=== PATIENT | female | born 1930 | race Caucasian/White ===

== ENCOUNTER → 2017-01-25 | Day surgery (SDC) | payer MEDICARE, OTHER ==
[~2017-01-25] VITALS: Ht 167.6 cm; Wt 74.2 kg
[~2017-01-25] MED LIST: CATAPRES0.1 MG PO; COLACE100 MG PO; HYDROCODON-ACE1 EAC4 PO; KALEXATE15 GM PO; LEVOTHROID (SY50 MCG PO; MAALOX LIQ UNIT30 ML PO; MYLANTA (MAG-AL30 ML PO; NORCO 5-325 TA1 EACH PO; NORVASC10 MG PO; OXYGEN M-15 INH; PRO STAT PO; TENORMIN25 MG PO; TENORMIN50 MG PO; TYLENOL325 MG PO; ZOLOFT25 MG PO; [UNRECOGNIZED DRUG - OTHER] PO
--- NOTE | ~2017-01-25 | OR ---
PATIENT'S NAME: MANJU ROSADO [facility] AGE: 86 Y [address] ROOM: [place] [id number] [place]: [facility] [place] DATE: 01/25/2017 OR/Procedure Report DISCHARGE DATE: FAMILY PHYSICIAN: Heath Siddiqui MD ATTENDING PHYSICIAN: JAMIE KENYON SURGEON: Jamie Kenyon MD ACUTE COORDINATOR: DATE OF PROCEDURE: 01/25/2017 PREOPERATIVE DIAGNOSIS: End-stage renal disease. POSTOPERATIVE DIAGNOSIS: End-stage renal disease. PROCEDURE: Right arm brachiobasilic fistula. MANAGER EMBALMER FUNERAL DIRECTOR: Coty Griffin. She was required during the case to perform retraction, minimal dissection, and then closure of the operative wound. ANESTHESIA: General. ESTIMATED BLOOD LOSS: 5 mL. OPERATIVE FINDINGS: Good thrill and bruit in the basilic fistula, although vein caliber was small. DESCRIPTION OF PROCEDURE: The patient was brought to the operating room, placed supine on the operating table, placed under general anesthesia, prepped and draped in a sterile manner. Preoperative time-out was performed. The patient received preoperative antibiotics. We made a standard incision 2 cm proximal to the antecubital fossa, dissected down the fascia, incised the fascia in a longitudinal manner. We dissected out the brachial artery in a 360-degree fashion. We dissected the cephalic vein initially, but this vein was not adequate for use. We then dissected out the basilic vein. We then transected it distally after ligation. We then gave 5000 units of heparin. We clamped proximally and distally the artery and made arteriotomy size of 4 mm. We then did a standard 6-0 Prolene anastomosis from the vein to the artery. We removed the clamps, there was excellent flow in the fistula, although the vein caliber remained small. There was a strong radial and ulnar signal at the end of the case. Heparin was reversed with the use of protamine. Thrombin was used locally in the wound. Deep layers were closed with 2-0 and 3-0 Vicryl. Skin was closed with running 4-0 Monocryl. The patient tolerated the procedure well and transferred to recovery room and home later that day. PATIENT'S NAME: MANJU ROSADO [facility] AGE: 86 Y [address] ROOM: [place] [address] LOCATION: [facility] [place]MIT DATE: 01/25/2017 OR/Procedure Report DISCHARGE DATE: FAMILY PHYSICIAN: Heath Siddiqui MD ATTENDING PHYSICIAN: JAMIE KENYON JAMIE KENYON MD FKM/modl /[id number] d: 01/[birth year]/171956 t: 02/04/17 1627, OPERATIVE SUMMARY
[2017-01-25 09:01] LABS: ALBUMIN 2.1 gm/dL (3.5-5.0); CALCIUM 8.1 mg/dL (8.5-10.5); TOTAL BILIRUBIN 0.2 mg/dL (0.0-1.5)
[2017-01-25 09:06] LABS: ANION GAP 15.1 (10.0-19.0)
[2017-01-25 09:07] LABS: CREATININE 4.2 mg/dL (0.5-1.1); POTASSIUM 5.1 mMol/L (3.7-5.1); TOTAL PROTEIN 4.8 g/dL (6.0-8.4)
--- NOTE | 2017-01-25 14:21 | NUR ---
LIA, S[employer] LINING EXAMINER AT [facility] CALLED REPORT. GAVE INSTRUCTIONS REGARDING DRESSING, IV DRESSING, AND DISMISSAL INSTRUCTIONS REGARDING FISTULA. DENIES FURTHER QUESTIONS.
== END ==
LOC: GPOC 01-04 13:00 → GSDC 07:12 → GPOC 09:00
PROVIDERS: Surgery Vascular Surgery
PROC: 03170ZD Bypass Right Brachial Artery to Upper Arm Vein, Open Approach (ICD-10-PCS; principal; 2017-01-25)
DX: I12.0 Hypertensive chronic kidney disease with stage 5 chronic kidney disease or end stage renal disease (principal); N18.6 End stage renal disease; E78.5 Hyperlipidemia, unspecified; E03.9 Hypothyroidism, unspecified; D64.9 Anemia, unspecified; F41.9 Anxiety disorder, unspecified; F03.90 Unspecified dementia, unspecified severity, without behavioral disturbance, psychotic disturbance, mood disturbance, and anxiety; Z98.49 Cataract extraction status, unspecified eye; Z99.2 Dependence on renal dialysis; Z98.890 Other specified postprocedural states; Z85.3 Personal history of malignant neoplasm of breast; M19.90 Unspecified osteoarthritis, unspecified site
CPT/HCPCS: J0690; J1644; J2001; J2250; J2405; J2440; J2720; J3010; J7030